=== PATIENT | female | born 1980 | race American Indian/Alaskan Native ===

== ENCOUNTER 2017-09-24 12:33 | Emergency (ER) | payer BC ==
[2017-09-24 13:29] VITALS: BP 152/109; PULSE 61; RESP 18; TEMP 97; O2SAT 100
--- NOTE | 2017-09-24 16:53 | ED PDOC ---
Lower Extremity Pain/Injury Time Seen by Provider: 09/24/17 14:00 Chief Complaint (Nursing): Lower Extremity Problem/Injury Chief Complaint (Provider): Left leg pain History Per: Patient History/Exam Limitations: no limitations Onset/Duration Of Symptoms: Other (x1 month) Current Symptoms Are (Timing): Still Present Additional Complaint(s): 37 year old female, with a past medical history of acute chronic left sided hip pain radiating down the left leg. Patient also reports intermittent numbness of the left thigh which she has been previously hospitalized for. Patient now presents with left leg pain and trouble walking secondary to this pain - acute on chronic. Pain has worsened over the past week. Denies fever, vomiting, and allergies. no recent falls or trauma. no pelvic or respiratory care faculty symptoms PCP: none provided Past Medical History Reviewed: Historical Data, Nursing Documentation, Vital Signs Vital Signs: Last Vital Signs Temp 97.0 F L 09/24/17 13:25 Pulse 61 09/24/17 13:25 Resp 18 09/24/17 13:25 BP 152/109 H 09/24/17 13:25 Pulse Ox 100 09/24/17 13:25 - Medical History PMH: No Chronic Diseases, Gastritis - Surgical History Surgical History: No Surg Hx - Family History Family History: States: Unknown Family Hx - Social History Current smoker - smoking cessation education provided: Yes (1 pack every 3 days) Alcohol: None Drugs: Denies - Home Medications Home Medications: Ambulatory Orders Medication Instructions Recorded Naproxen [Naprosyn] 500 mg PO BID PRN #14 tablet 09/24/17 - Allergies Allergies/Adverse Reactions: Allergies Allergy/AdvReac Type Severity Reaction Status Date / Time No Known Allergies Allergy Verified 11/09/14 04:09 Review of Systems ROS Statement: Except As Marked, All Systems Reviewed And Found Negative Musculoskeletal: Positive for: Leg Pain (left) Physical Exam - Reviewed Nursing Documentation Reviewed: Yes Vital Signs Reviewed: Yes - Physical Exam Appears: Positive for: Non-toxic, No Acute Distress (comfortably eating potato chips) Head Exam: Positive for: ATRAUMATIC, NORMAL INSPECTION, NORMOCEPHALIC Skin: Positive for: Normal Color, Warm, Dry Eye Exam: Positive for: Normal appearance ENT: Positive for: Normal ENT Inspection Neck: Positive for: Normal, Painless ROM Cardiovascular/Chest: Positive for: Regular Rate, Rhythm. Negative for: Murmur Respiratory: Positive for: Normal Breath Sounds. Negative for: Wheezing, Respiratory Distress Gastrointestinal/Abdominal: Positive for: Normal Exam, Soft. Negative for: Tenderness Back: Positive for: Normal Inspection. Negative for: L CVA Tenderness, R CVA Tenderness Extremity: Positive for: Normal ROM Neurologic/Psych: Positive for: Alert, Oriented. Negative for: Motor/Sensory Deficits - Laboratory Results Result Diagrams: 09/24/17 17:14 09/24/17 17:14 - ECG O2 Sat by Pulse Oximetry: 100 (RA) Pulse Ox Interpretation: Normal Medical Decision Making Medical Decision Making: Initial Impression: Left leg pain Rule out: blood clot Initial Plan: CT lower extremity CT hip CT lumbar spine CMP CB Toradol US lower extremity 17:[address] Hernandez. Pending CT scan and US and reeval. Scribe Attestation: Documented by Matheus Chavez acting as a scribe for Reyna Zhong MD. Provider Scribe Attestation: All medical record entries made by the Scribe were at my direction and personally dictated by me. I have reviewed the chart and agree that the record accurately reflects my personal performance of the history, physical exam, medical decision making, and the department course for this patient. I have also personally directed, reviewed, and agree with the discharge instructions and disposition. Disposition - Clinical Impression Clinical Impression: Hip pain, Radicular pain - Patient ED Disposition Is Patient to be Admitted: Transfer of Care - Disposition Referrals: Prabhakar Baxter MD [Staff Provider] - Disposition: Transfer of Care Disposition Time: 17:00 Condition: STABLE Additional Instructions: Return to ER for any concern for self. Take medications as directed. Followup with orthopedics for further testing and treatment. Prescriptions: Naproxen [Naprosyn] 500 mg PO BID PRN #14 tablet PRN Reason: Pain, Moderate (4-7) Instructions: Radiculopathy (DC), Joint Pain Forms: [facility] (Maori)
[2017-09-24 17:19] LABS: BASO # 0.1 K/uL (0.0-0.2); BASO % 1.4 % (0.0-2.0); EOS # 0.1 K/uL (0.0-0.7); EOS % 1.3 % (0.0-4.0); HEMOGLOBIN 13.3 g/dL (12.0-16.0); LYMPH # 2.8 K/uL (1.0-4.3); LYMPH % 45.5 % (20.0-40.0); MEAN CELL VOLUME 86.5 fl (81.0-99.0); MEAN CORPUSCULAR HEMOGLOBIN 28.8 pg (27.0-31.0); MEAN CORPUSCULAR HGB CONC 33.2 g/dL (33.0-37.0); MEAN PLATELET VOLUME 7.3 fl (7.2-11.7); MONO # 0.3 K/uL (0.0-0.8); MONO % 5.6 % (0.0-10.0); NEUT # 2.9 K/uL (1.8-7.0); NEUT % 46.2 % (50.0-75.0); RBC 4.64 Mil/uL (3.80-5.20); WHITE BLOOD COUNT 6.2 K/uL (4.8-10.8)
[2017-09-24 17:33] LABS: ALB/GLOB RATIO 1.1 (1.0-2.1); ALBUMIN 4.3 g/dL (3.5-5.0); ALT/SGPT 29 U/L (9-52); AST/SGOT 24 U/L (14-36); BLOOD UREA NITROGEN 12 mg/dl (7-17); CALCIUM 9.3 mg/dL (8.4-10.2); GFR AFRICAN-AMERICAN > 60; GFR NON-AFRICAN AMERICAN > 60
--- NOTE | 2017-09-24 18:25 | US ---
PROCEDURE: Left lower extremity duplex venous sonography HISTORY: l leg pain COMPARISON: None available. TECHNIQUE: Real-time ultrasound scan of the veins with color flow, spectral waveform analysis and compression FINDINGS: Left lower extremity: Normal flow, augmentation and compressibility were noted. No evidence of deep vein thrombosis. IMPRESSION: Negative study
--- NOTE | 2017-09-24 18:28 | CT ---
PROCEDURE: CT Lumbar Spine without contrast HISTORY: Pain. No history of recent/ related trauma provided COMPARISON: None. TECHNIQUE: Axial computed tomography images were obtained of the lumbar spine without the use of intravenous contrast. Coronal and sagittal reformatted images were created and reviewed. Radiation dose: Total exam DLP = all or mGy-cm. This CT exam was performed using one or more of the following dose reduction techniques: Automated exposure control, adjustment of the mA and/or kV according to patient size, and/or use of iterative reconstruction technique. FINDINGS: VERTEBRAE: Unremarkable. No fracture. Normal alignment. DISCS/SPINAL CANAL/NEURAL FORAMINA: L1-2: Unremarkable. L2-3: Unremarkable. L3-4: Unremarkable. L4-5: Unremarkable. L5-S1: Unremarkable. PARASPINAL SOFT TISSUES: Unremarkable. OTHER FINDINGS: None. IMPRESSION: Unremarkable CT of Lumbar Spine.
--- NOTE | 2017-09-24 18:32 | CT ---
PROCEDURE: All CT left hip Wall HISTORY: Pain. No history of recent/ related trauma providedleg pain COMPARISON: September 24, 2017. TECHNIQUE: 2.5 mm axial acquisition and display. Coronal and sagittal reconstructions. Dose report (mGy-cm): 435.75 Supplemental 3D volume rendering FINDINGS: There are no osseous abnormalities to suggest fracture. The pelvic ring is intact. Preserved femoral-acetabular relationship. Negative study for protrusio, subluxation or dislocation. Degenerative changes: None Incidental finding(s): Trace free fluid identified in the pelvis/cul de sac. Uterus is enlarged likely myomatous. IMPRESSION: No significant or acute findings to account for/ related to the clinical presentation.
--- NOTE | 2017-09-24 18:34 | CT ---
PROCEDURE: Left lower extremity CT HISTORY: Leg pain. COMPARISON: September 24, 2017. TECHNIQUE: 2.5 mm axial acquisition and display. Coronal and sagittal reconstructions. Dose report (mGy-cm): 668.79. 3D volume rendering right femur FINDINGS: No significant osseous, visible articular or soft tissue abnormalities. Wall IMPRESSION: No significant or acute findings to account for/ related to the clinical presentation.
--- NOTE | 2017-09-24 20:00 | ED PDOC ---
- Laboratory Results Result Diagrams: 09/24/17 17:14 09/24/17 17:14 - ECG O2 Sat by Pulse Oximetry: 100 (RA) Medical Decision Making Medical Decision Making: Ct reports reviewed Patient given results and explained need for followup Disposition - Clinical Impression Clinical Impression: Hip pain, Radicular pain - Disposition Referrals: Prabhakar Baxter MD [Staff Provider] - Condition: STABLE Additional Instructions: Return to ER for any concern for self. Take medications as directed. Followup with orthopedics for further testing and treatment. Prescriptions: Naproxen [Naprosyn] 500 mg PO BID PRN #14 tablet PRN Reason: Pain, Moderate (4-7) Instructions: Radiculopathy (DC), Joint Pain Forms: [facility] (Congolese)
== END 2017-09-24 19:59 | disposition home or self-care (01) ==
LOC: H.ER 12:33
DX: M25.552 Pain in left hip (principal); M54.10 Radiculopathy, site unspecified; F17.200 Nicotine dependence, unspecified, uncomplicated
CPT/HCPCS: 72131; 73700; 80053; 81025; 85025; 93971; 96374; 99283; J1885